=== PATIENT | female | born 1995 ===

== ENCOUNTER 2017-11-28 18:53 | Emergency (ER) | payer SELFPAY ==
[2017-11-28 20:36] LABS: BASO % 0.4 % (0.0-2.0); EOS # 0.1 K/uL (0.0-0.7); EOS % 0.7 % (0.0-4.0); HEMOGLOBIN 12.4 g/dL (12.0-16.0); LYMPH # 2.1 K/uL (1.0-4.3); MEAN CELL VOLUME 90.2 fl (81.0-99.0); MEAN CORPUSCULAR HEMOGLOBIN 30.6 pg (27.0-31.0); MEAN CORPUSCULAR HGB CONC 33.9 g/dL (33.0-37.0); MEAN PLATELET VOLUME 8.1 fl (7.2-11.7); MONO # 0.6 K/uL (0.0-0.8); NEUT # 7.8 K/uL (1.8-7.0); NEUT % 72.9 % (50.0-75.0); RBC 4.05 Mil/uL (3.80-5.20); WHITE BLOOD COUNT 10.7 K/uL (4.8-10.8)
[2017-11-28 20:44] LABS: ALB/GLOB RATIO 1.3 (1.0-2.1); ALBUMIN 3.8 g/dL (3.5-5.0); ALT/SGPT 22 U/L (9-52); AST/SGOT 25 U/L (14-36); BLOOD UREA NITROGEN 11 mg/dl (7-17); GFR NON-AFRICAN AMERICAN > 60; LIPASE 65 U/L (23-300)
[2017-11-28 20:50] LABS: SQUAMOUS EPITHIAL 3 /hpf (0-5); URINE BACTERIA OCC (<OCC); URINE BILIRUBIN NEGATIVE (NEGATIVE); URINE BLOOD MODERATE (NEGATIVE); URINE CLARITY CLOUDY (Clear); URINE COLOR YELLOW (YELLOW); URINE GLUCOSE (UA) NEG (Normal); URINE LEUKOCYTE ESTERASE SMALL Leu/uL (Negative); URINE PROTEIN NEGATIVE (NEGATIVE); URINE UROBILINOGEN 0.2-1.0 mg/dL (0.2-1.0)
--- NOTE | 2017-11-28 20:52 | ED PDOC ---
HPI: Abdomen Time Seen by Provider: 11/28/17 19:14 Chief Complaint (Nursing): Abdominal Pain Chief Complaint (Provider): Abdominal Pain History Per: Patient History/Exam Limitations: no limitations Onset/Duration Of Symptoms: Days (x1) Current Symptoms Are (Timing): Still Present Associated Symptoms: Vomiting Additional Complaint(s): 22 y/o female presents to the ED for evaluation of abdominal pain associated with vomiting, onset one day ago. Patient reports of having two episodes of vomiting with a mild amount of blood in the vomitus. Denies diarrhea , fever, cough, recent weight loss and urinary symptoms. 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.) - Home Medications Home Medications: Ambulatory Orders Medication Instructions Recorded Famotidine [Pepcid] 20 mg PO Q12 #14 tab 11/28/17 Nitrofurantoin Macrocrystals 100 mg PO BID #14 cap 11/28/17 [Macrobid] - Allergies Allergies/Adverse Reactions: Allergies Allergy/AdvReac Type Severity Reaction Status Date / Time No Known Allergies Allergy Verified 11/28/17 20:02 Review of Systems ROS Statement: Except As Marked, All Systems Reviewed And Found Negative Constitutional: Negative for: Fever, Weight loss Respiratory: Negative for: Cough Gastrointestinal: Positive for: Vomiting, Abdominal Pain. Negative for: Diarrhea Genitourinary Female: Negative for: Dysuria, Frequency, Hematuria Physical Exam - Reviewed Nursing Documentation Reviewed: Yes Vital Signs Reviewed: Yes - Physical Exam Appears: Positive for: Non-toxic, No Acute Distress Head Exam: Positive for: ATRAUMATIC, NORMOCEPHALIC Skin: Positive for: Normal Color, Warm, Dry Eye Exam: Positive for: Normal appearance, EOMI, PERRL Neck: Positive for: Normal, Painless ROM, Supple Cardiovascular/Chest: Positive for: Regular Rate, Rhythm. Negative for: Murmur Respiratory: Positive for: Normal Breath Sounds. Negative for: Respiratory Distress Gastrointestinal/Abdominal: Positive for: Tenderness (right upper quadrant and epigastric tenderness) Extremity: Positive for: Normal ROM. Negative for: Pedal Edema, Deformity Neurologic/Psych: Positive for: Alert, Oriented. Negative for: Motor/Sensory Deficits - Laboratory Results Result Diagrams: 11/28/17 20:33 11/28/17 20:33 - ECG O2 Sat by Pulse Oximetry: 100 (RA) Pulse Ox Interpretation: Normal Medical Decision Making Medical Decision Making: Time: 2032 Impression: 22 y/o female with abdominal pain and vomiting. Plan: -- EKG -- CMP -- Lipase -- ED Urine -- ED Urine Dipstick -- CBC with differentials -- Pepcid 20 mg IV -- Heplock Insertion -- Urinalysis -- Gallbladder & Pancreatic US Time: 2230 US RESULTS FINDINGS: Liver: Normal echogenicity. No mass. No intrahepatic bile duct dilatation. Gallbladder: No gallstones. No wall thickening. No pericholecystic fluid. No sonographic Palacios's sign. Common bile duct: No dilatation. No stones. Pancreas: Unremarkable as visualized. Right kidney: Normal echogenicity. No significant hydronephrosis. IMPRESSION: No acute findings. Thank you for allowing us to participate in the care of your patient. Dictated and Authenticated by: Bryson Suazo MD 11/28/2017 10:31 PM Eastern Time ([place] & [place]) Time: 2245 -- Labs show no clinically significant abnormalities except for urine which is indicative of UTI. XR shows no acute findings. Patient is stable for discharge with a diagnosis of Gastritis. Scribe Attestation: Documented by Chucky Kennedy acting as a scribe for Blue Myers MD. Provider Scribe Attestation: All medical record entries made by the Scribe were at my direction and personally dictated by me. I have reviewed the chart and agree that the record accurately reflects my personal performance of the history, physical exam, medical decision making, and the department course for this patient. I have also personally directed, reviewed, and agree with the discharge instructions and disposition. Disposition - Clinical Impression Clinical Impression: Gastritis, UTI (urinary tract infection) - Disposition Referrals: [facility] [Outside] Disposition Time: 22:46 Condition: STABLE Prescriptions: Famotidine [Pepcid] 20 mg PO Q12 #14 tab Nitrofurantoin Macrocrystals [Macrobid] 100 mg PO BID #14 cap Instructions: Gastritis, Urinary Tract Infection, Adult (DC) Forms: [facility] ([place] Islander) Print Language: NIGERIAN
[2017-11-28 23:04] VITALS: BP 125/53; PULSE 71; RESP 16; TEMP 98.1; O2SAT 99
--- NOTE | 2017-11-29 06:35 | CARD ---
APPROVED REPORT Date of service: 11/28/2017 EKG Measurement Heart [id number] <Conclusion> Normal sinus rhythm Normal ECG
--- NOTE | 2017-11-29 09:42 | US ---
Date of service: 11/28/2017 HISTORY: Abdominal pain COMPARISON: None. TECHNIQUE: Grayscale imaging was performed. FINDINGS: LIVER: Measures 13.5 cm in length. Normal echogenicity of the liver parenchyma. No mass. No intrahepatic bile duct dilatation. GALLBLADDER: There are no gallstones, wall thickening or pericholecystic fluid. The sonographic Palacios's sign is negative. COMMON BILE DUCT: Measures 3.0 mm. No stones. No dilatation. PANCREAS: Normal in size and echotexture. No mass. No ductal dilatation. RIGHT KIDNEY: Measures 9.5 cm in length. Normal echogenicity. No calculus, mass, or hydronephrosis. AORTA: No aneurysmal dilatation. IVC: Unremarkable. OTHER FINDINGS: None . IMPRESSION: No cholelithiasis or biliary dilatation. A preliminary report was provided by [facility].
== END 2017-11-28 23:04 | disposition home or self-care (01) ==
LOC: H.ER 18:53
DX: K29.70 Gastritis, unspecified, without bleeding (principal); N39.0 Urinary tract infection, site not specified

== ENCOUNTER 2018-02-10 03:03 | Emergency (ER) | payer SELFPAY ==
[2018-02-10 03:31] VITALS: RESP 16; TEMP 97.7
--- NOTE | 2018-02-10 04:05 | ED PDOC ---
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 Patient states that she was dancing in a club drinking alcohol when she felt very hot and passed out; upon waking up, she notes there were many people standing over her and her boyfriend said she might have had a seizure because he saw her shaking briefly. Denies tongue bite, incontinence, a confused state after the event, and drug use tonight. Currently, all she is complaining about is a mild throbbing headache. PMD: none provided Past Medical History Reviewed: Historical Data, Nursing Documentation, Vital Signs Vital Signs: Last Vital Signs Temp 97.7 F 02/10/18 03:30 Pulse 88 02/10/18 03:30 Resp 16 02/10/18 03:30 BP 103/66 02/10/18 03:30 Pulse Ox 100 02/10/18 03:30 - Medical History PMH: No Chronic Diseases - Surgical History Surgical History: No Surg Hx - Family History Family History: States: Unknown Family Hx - Social History Current smoker - smoking cessation education provided: Yes (light) Alcohol: Social Drugs: Denies - Home Medications Home Medications: Ambulatory Orders Medication Instructions Recorded Famotidine [Pepcid] 20 mg PO Q12 #14 tab 11/28/17 Nitrofurantoin Macrocrystals 100 mg PO BID #14 cap 11/28/17 [Macrobid] - Allergies Allergies/Adverse Reactions: Allergies Allergy/AdvReac Type Severity Reaction Status Date / Time No Known Allergies Allergy Verified 02/10/18 03:31 Review of Systems ROS Statement: Except As Marked, All Systems Reviewed And Found Negative ENT: Negative for: Other (tongue bite) Genitourinary Female: Negative for: Incontinence Neurological: Positive for: Headache (mild throbbing), Other (syncope, possible seizure). Negative for: Confusion Physical Exam - Reviewed Nursing Documentation Reviewed: Yes Vital Signs Reviewed: Yes - Physical Exam Appears: Positive for: No Acute Distress Head Exam: Positive for: ATRAUMATIC, NORMAL INSPECTION, NORMOCEPHALIC Skin: Positive for: Normal Color, Warm, Dry. Negative for: Rash Eye Exam: Positive for: Normal appearance, EOMI, PERRL ENT: Positive for: Normal ENT Inspection Neck: Positive for: Normal, Painless ROM, Supple Cardiovascular/Chest: Positive for: Regular Rate, Rhythm Respiratory: Positive for: Normal Breath Sounds. Negative for: Respiratory Distress Gastrointestinal/Abdominal: Positive for: Normal Exam, Soft. Negative for: Tenderness Back: Positive for: Normal Inspection Extremity: Positive for: Normal ROM Neurologic/Psych: Positive for: Alert, foreign language instructor II-XII (grossly intact), Oriented (x3), Mood/Affect (normal), Cerebellar Tests (grossly intact), Gait (steady). Negative for: Motor/Sensory Deficits, Aphasia, Facial Droop - ECG O2 Sat by Pulse Oximetry: 100 (RA) Pulse Ox Interpretation: Normal Medical Decision Making Medical Decision Making: A/P: 22 year old female presenting with syncopal episode --well appearing currently, unlikely seizure, most likely syncopal episode with tonic-clonic features Time: 329 Initial Plan: --EKG --Lact acid --Accucheck 430 --Patient has negative workup --Well appearing --Advised to abstain from alcohol abuse and to followup in [facility] Scribe Attestation: Documented by Rosa Negro acting as a scribe for Harvey Gonzalez MD. Provider Scribe Attestation: All medical record entries made by the Scribe were at my direction and personally dictated by me. I have reviewed the chart and agree that the record accurately reflects my personal performance of the history, physical exam, medical decision making, and the department course for this patient. I have also personally directed, reviewed, and agree with the discharge instructions and disposition. Disposition - Clinical Impression Clinical Impression: Syncope - Disposition Referrals: [facility] [Outside] Disposition: Routine/Home Disposition Time: 04:30 Condition: STABLE Instructions: Syncope (Fainting) Forms: [facility] (Latvian) Print Language: [place] ISLANDER
[2018-02-10 04:55] VITALS: BP 103/64; PULSE 82; O2SAT 98
--- NOTE | 2018-02-10 10:02 | CARD ---
APPROVED REPORT Date of service: 02/10/2018 EKG Measurement Heart [id number] <Conclusion> Normal sinus rhythm Normal ECG
== END 2018-02-10 04:55 | disposition home or self-care (01) ==
LOC: H.ER 03:03
DX: R55 Syncope and collapse (principal)